=== PATIENT | female | born 1995 | race Caucasian/White ===

== ENCOUNTER 2020-08-11 14:08 | Emergency (ER) | payer BC | END 2020-08-11 14:27 | disposition home or self-care (01) | LOC: JVIRT 14:08 | DX: Z11.52 Encounter for screening for COVID-19 (principal) | CPT/HCPCS: 99285-25; C9803; G2251-GT; U0003 ==

== ENCOUNTER 2020-09-03 11:01 | Emergency (ER) | payer BC ==
[2020-09-03 11:16] VITALS: BMI 45.6
[2020-09-03] MEDS ORDERED: BAMLANIVIMAB 700 MG in SODIUM CHLORIDE 250 ML IVPB ONE (11:48)
[2020-09-03 12:41] LABS: HEMATOCRIT 41.5 % (32.4-45.2); HEMOGLOBIN 13.8 GM/dL (10.7-15.3); MCH 27.6 pg (25.7-33.7); MCHC 33.2 g/dl (32.0-36.0); MEAN CELL VOLUME 83.1 fl (80-96); MEAN PLT VOLUME 8.2 fl (7.5-11.1); PLATELET COUNT 265 K/MM3 (134-434); RDW 13.9 % (11.6-15.6); WHITE BLOOD COUNT 7.5 K/mm3 (4.0-10.0)
[2020-09-03 13:27] LABS: CREATININE 0.8 mg/dL (0.55-1.3)
[2020-09-03 13:33] LABS: POTASSIUM 4.1 mmol/L (3.5-5.1)
[2020-09-03 13:35] LABS: CALCIUM 9.2 mg/dL (8.5-10.1)
[2020-09-03 15:28] VITALS: TEMP 97.9
[2020-09-03 15:52] VITALS: BP 120/74; PULSE 87
== END 2020-09-03 15:55 | disposition home or self-care (01) ==
LOC: JCOVINFU 11:01 → JER 11:01 → JCOVINFU 15:55
DX: U07.1 COVID-19 (principal)
CPT/HCPCS: 36415; 80048; 85027; 99284-25; M0239; Q0239